=== PATIENT | female | born 1990 | race Caucasian/White ===

== ENCOUNTER 2019-05-15 11:16 | Outpatient (CLI) | payer OTHER, SELFPAY ==
[2019-05-15 12:55] LABS: TSH (W/Ref FT4) 1.39 uIU/mL (0.36-3.74)
== END 2019-05-15 11:36 ==
PROVIDERS: PCP Nurse Practitioner Adult Health; Visit Provider Nurse Practitioner Adult Health
DX: Z86.39 Personal history of other endocrine, nutritional and metabolic disease (principal)
CPT/HCPCS: 36415; 84443

== ENCOUNTER 2019-06-19 10:14 | Outpatient (REF) | payer OTHER, SELFPAY ==
--- NOTE | 2019-06-19 09:15 | PAPFT_PTH ---
PATIENT: Mila Andino LOC: [facility] U#:[id number] AGE/SX: 29/F ROOM: RE06/19/[address]: Roselia Renae NP : 1990 BED: DIS: 06/19/2019 SPEC #: [id number] RECD: 06/19/19 12:57 STATUS: MARIO REMaria A #: [id number] CONCEPCION: 06/19/19 09:[address]: Roselia Renae NP [facility] Cytology RECD BY: Ignacia Muniz ENTERED: 06/19/19 12:57 SP TYPE: PAPFT OTHR DR: Jocelyn Martinez APRN Tissues: 1 - CX/ENDOCX FOR PAP SMEARS Procedures: PAP THIN PREP/UVM Screening HPV DNA PROBE Comments: [id number]
== END 2019-06-19 10:34 ==
LOC: LBN 10:14
PROVIDERS: PCP Nurse Practitioner Adult Health; Visit Provider Nurse Practitioner Women's Health
DX: Z12.4 Encounter for screening for malignant neoplasm of cervix (principal); Z11.51 Encounter for screening for human papillomavirus (HPV)
CPT/HCPCS: 88142; 87624

== ENCOUNTER 2019-11-26 13:00 | Outpatient (REF) | payer MEDICAID, SELFPAY ==
[2019-11-27 15:24] LABS: Chlamydia Result Negative (Negative); GC Result Negative (Negative)
== END 2019-11-26 13:20 ==
LOC: LBN 13:00
PROVIDERS: PCP Nurse Practitioner Adult Health; Visit Provider Nurse Practitioner Women's Health
DX: Z11.3 Encounter for screening for infections with a predominantly sexual mode of transmission (principal)
CPT/HCPCS: 87491; 87591

== ENCOUNTER 2020-07-30 02:10 | Outpatient (CLI) | payer MEDICAID, SELFPAY ==
--- NOTE | 2020-07-30 07:45 | DI.MRI_ITS ---
EXAM: MR LUMBAR SPINE WO CLINICAL HISTORY: 5m lumbar pain s/p PT--improved, but not resolved,M54.5,G89.29. TECHNIQUE: Multiplanar multisequence MRI of the Lumbar spine was performed. COMPARISON: There are no plain films of the lumbar spine available time this MRI interpretation. FINDINGS: Five lumbar vertebrae are presumed. Conus medullaris is at normal level. There is no evidence of conus mass nor subjacent clumping of in trathecal nerve roots to suggest arachnoiditis. The distal thecal sac appears unremarkable.There is no evidence of Tarlov intrasacral cysts nor other significant findings within the sacral canal Bones:There are no fractures nor ominous osseous lesions in the lumbar vertebral bodies and visualize d sacrum. With respect to the individual levels... T12-L1: Unremarkable L1-2: Normal disc height and signal. No disc herniation nor central canal stenosis.No foraminal steno sis L2-3: Normal disc height. No disc herniation nor central canal stenosis.No foraminal stenosis.No face t arthropathy. L3-4: Normal disc height. No disc herniation or central canal stenosis.No foraminal stenosis.No face t arthropathy. L4-5: Normal disc height and signal. No significant disc herniation. No central canal stenosis. No foraminal stenosis. No facet arthropathy. L5-S1: Normal disc height and signal. There is mild central subligamentous annular bulging. There i s no prominent disc herniation at this level. Central canal dimensions are within normal limits. Th ere is no significant foraminal stenosis on either side at this level. No significant facet arthropa thy. Soft tissues: paraspinal soft tissues appear unremarkable. IMPRESSION: 1. At L5-S1 level there is mild central subligamentous annular bulging. No prominent disc herniation . Central canal dimensions are within normal limits and there is no foraminal stenosis at this level nor facet arthropathy. 2. Other levels appear unremarkable. 3. Bone signal is normal. No osseous lesions. DATA REPOSITORY:
== END 2020-07-30 02:30 ==
PROVIDERS: PCP Nurse Practitioner Adult Health; Visit Provider Nurse Practitioner Adult Health
DX: M54.5 Low back pain (principal); G89.29 Other chronic pain
CPT/HCPCS: 72148

== ENCOUNTER 2020-10-22 02:57 | Outpatient (CLI) | payer MEDICAID, SELFPAY ==
[2020-10-22 16:32] LABS: TSH (W/Ref FT4) 1.58 uIU/mL (0.36-3.74); Vitamin B12 256 pg/mL (193-986)
[2020-10-22 16:33] LABS: Folate > 20.0 ng/mL (8.6-20.0)
[2020-10-22 21:45] LABS: Thyroglobulin Antibody 201 U/mL (<=60); Thyroperoxidase Antibody >1300 U/mL (<=60)
[2020-10-24 11:14] LABS: FREE T4 0.89 ng/dL (0.76-1.46)
[2020-10-24 16:56] LABS: T3, Total 136 ng/dL (97-169)
== END 2020-10-22 02:58 | disposition home or self-care (01) ==
LOC: LBO 02:57
PROVIDERS: PCP Nurse Practitioner Adult Health; Visit Provider Nurse Practitioner Adult Health
DX: F41.8 Other specified anxiety disorders (principal); E06.3 Autoimmune thyroiditis; Z86.39 Personal history of other endocrine, nutritional and metabolic disease
CPT/HCPCS: 36415; 86376; 82607; 82746; 84439; 84443; 84480

== ENCOUNTER 2021-04-26 06:44 | Emergency (ER) | payer MEDICAID, SELFPAY ==
--- NOTE | 2021-04-26 06:51 | W.ED.GENAD ---
Discharge Plan Disposition Patient Disposition: HOME Condition: Stable Discharge Details Clinical Impression: Pelvic pain, Dyspareunia Primary Care Provider: Jocelyn Martinez ED Provider: Karlos George Home Meds and New Rx's Prescriptions: Continued Mirena 20 mcg/24 hours (6 yrs) 52 mg intrauterine device 1 device intrauterine ONCE RF: 0 escitalopram oxalate 20 mg tablet 20 mg PO DAILY Qty: 90 RF: 3 multivitamin Tablet 1 tab PO DAILY RF: 0 Discharge Instructions Additional Instructions: We will ask our care management team to arrange a follow-up for you in [facility]. As we discussed pelvic rest, liberal fluids, nonsteroidal anti-inflammatory such as ibuprofen 600 mg every 8 hours for the next 1 to 2 days. This is best taken with food. Return to the emergency department for new concerns. Medical Decision Making <Lane Renae MD - Last Filed: 04/26/21 07:34> 31 yo female comes in with complaints of lower back and pelvic pain that started last night while having intercourse. She went to work today and started to feel lightheaded while standing and still had pelvic pain so came here. Denies chest pain, dyspnea, vaginal discharge or bleeding. Denies any fevers. She arrives stable and speaking in full sentences. She has lower left and right pelvic tenderness, no upper abdominal pain. I performed a speculum exam with nurse Arlen Camacho at bedside and patient did have pain with speculum insertion, no discharge or bleeding or significant abnormalities noted on exam, did not visualize the iud strings. Given her pain and location of pain will obtain u/s to evaluate for ovarian cyst and torsion and also to evaluate for proper placement of her IUD. Her pain seems more pelvic than abdominal so feel entities such as appendicitis or diverticulitis are unlikely Differential Diagnosis Differential Diagnosis: ovarian cyst, ovarian torsion, dyspareunia Lab Data Lab results reviewed: Yes I reviewed the patient's lab results. <Karlos George MD - Last Filed: 04/26/21 08:40> Received signout from Dr. Renae. Please see his note regarding details of the initial presentation, exam and plan of care. Patient's pain improved. Ultrasound unremarkable, please see the formal report. Discussed with her pelvic rest, NSAIDs. She understands that her GC and Chlamydia are pending. We will obtain follow-up in [facility] clinic for dyspareunia. She is stable & discharged home at this time HPI <Lane Renae MD - Last Filed: 04/26/21 07:34> General Mode of arrival: ambulatory. Date/Time Provider Initiated Documentation: 04/26/21 06:45. Limitations to Documentation: no limitations. Information obtained by: patient. History of Present Illness 31 year old F presents to the emergency department with the chief complaint of abdominal pain, described as moderate, Quality is described as stabbing, and is localized to the abdomen. Patient reports no radiation. and it has been constant. No relieving factors improve symptom(s), No exacerbating factors reported . Patient did receive the following treatments prior to arrival, none Related Data Home Medications Medication Instructions Recorded Confirmed multivitamin 1 tab PO DAILY 05/08/19 04/26/21 escitalopram oxalate 20 mg tablet 20 mg PO DAILY #90 tab 03/03/20 04/26/21 levonorgestrel 20 mcg/24 hours (7 1 device INTRAUTERINE ONCE 03/03/20 04/26/21 yrs) 52 mg intrauterine device Previous Rx's Medication Instructions Recorded escitalopram oxalate 20 mg tablet 20 mg PO DAILY #90 tab 03/03/20 Allergies Allergy/AdvReac Type Severity Reaction Status Date / Time ioversol [From Optiray 160] Allergy Verified 04/26/21 07:05 latex Allergy Verified 04/26/21 07:05 CT contrast Allergy Hives Uncoded 04/26/21 07:05 Review of Systems <Lane Renae MD - Last Filed: 04/26/21 07:34> All systems reviewed & are unremarkable except as noted in HPI and below Constitutional Constitutional: Denies chills, Denies fever(s) and Denies weakness Cardiovascular Cardiovascular: Denies chest pain and Denies dyspnea Respiratory Respiratory: Denies cough and Denies dyspnea Gastrointestinal Gastrointestinal: Denies vomiting Musculoskeletal Musculoskeletal: Denies joint swelling Neurologic Neurologic: Denies weakness PFS <Lane Renae MD - Last Filed: 04/26/21 07:34> All Active Problems (Updated 04/26/21 @ 08:39 by Karlos George MD) Pelvic pain (Acute) Dyspareunia (Acute) Vegetarian diet (Chronic) B12 low-normal, recommend supp 10/2020 Thyroid antibody positive (Acute) Family history of thyroid disease (Chronic) Sister Graves, personal history, Dad hypothyroid Atrophoderma (Chronic) LLE IUD surveillance (Acute) Anxious depression (Acute) History of Jd thyroiditis (Acute) Medical History (Updated 04/26/21 @ 08:39 by Karlos George MD) History of bipolar disorder pediatric 13yo Interstitial cystitis ~2008, resolved spontaneously Lumbar spine pain SI joint dysfunction; MRI stable 2020 Pilar cyst 12/03/19 [facility] Surgical History H/O laparoscopy x2 (~2008, with hysteroscopy & cystocopy) Family History Mother Anxiety Ovarian cancer s/p surgery & thriving Depression Father Asthma Diabetes Hypertension Hyperlipidemia Paternal Grandmother Breast cancer Paternal Grandfather Lung cancer Colon cancer Maternal Grandfather Stroke TIA Social History Smoking/Tobacco Use Status: Never Smoking risk assessment performed?: Yes Alcohol Intake: current Alcohol Intake frequency: a few times a week Alcohol type: wine Drug use: Occasionally Substance use type: marijuana Adopted: No Caregiver/Support person: No Foster care: No Household members: significant other Housing: apartment Number of Children: 0 Communication Needs: Corrective Lenses Education Level: college Details: Some college Do you need help understanding health information?: Rarely current occupation: [employer] - 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 [facility] Sexually active: Yes Do you think of yourself as: straight/heterosexual Current gender identity: female What is your relationship status?: living with partner Panel score (0-1 are the most socially isolated patients): 1 What type of physical activity do you participate in: walking Frequency: 5-6 times per week Special florencia needs: No Seatbelt use: always Helmet use: Yes Drive intox or ride w/intox 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 Working smoke detector in home: Yes Fire extinguisher in home: Yes Carbon monox detector in home: Yes Do you feel safe at home: Yes Do you feel safe in your relationship?: Yes Female Reproductive History Menstrual Age of Menarche: 9 History History 0 Para Hx # Term Pregnancies Multiple births Hx # Pregnancies Ectopic pregnancies AB induced Hx Number of Living Children AB spontaneous Exam <Lane Renae MD - Last Filed: 04/26/21 07:34> Const General: no acute distress Orientation: alert HENMT Head: normal to inspection Ears: external ears normal General nose exam: external nose normal Mouth: moist mucous membranes Eyes General: appearance normal, both eyes and all related structures Neck Neck: normal visual inspection Resp Effort & Inspection: normal respiratory effort and able to speak in complete sentences Cardio Rate: regular rate GI Palpation: soft and tender Skin General skin exam: no rashes or lesions noted Neuro General: patient alert and patient oriented x3 Extrem General: normal to inspection Psych Mental Status: mental status grossly normal Sign Out <Lane Renae MD - Last Filed: 04/26/21 07:34> Sign Out Data: Sign Out Comment: pelvic pain starting during intercourse last night, pending labs, u/s and reeval Last updated by Lane Renae MD at 04/26/21 07:35
[2021-04-26 07:00] VITALS: BP 119/75; PULSE 69; RESP 16; TEMP 36.3; O2SAT 100
--- NOTE | 2021-04-26 07:15 | DI.US_ITS ---
Exam(s) US PELVIS TRANSVAGINAL EXAM: US PELVIS TRANSVAGINAL CLINICAL HISTORY: pelvic pain, ?ovarian torsion and ovarian cysts TECHNIQUE: Transabdominal and transvaginal imaging was performed using standard protocol. COMPARISON: No exams were available for comparison FINDINGS: KIDNEYS: Kidneys are symmetric in size. No evidence of renal calculi. No evidence of hydronephrosis. No renal mass or cyst identified. Transabdominal images are limited by inadequate bladder distention. UTERUS: Anteverted. 6.5 x 2.1 x 4.9 cm. Endometrium: IUD appears appropriately positioned. Endometrium less than 2 millimeters. Myometrium: Unremarkable. Cervix: Unremarkable. OVARIES: Right: Cyst or mass: 3.5 centimeter cyst with layering debris. Left: Cyst or mass: None. DOPPLER: Color: Symmetric and uniform flow to both ovaries. No hyperemia. Duplex: Normal ovarian arterial waveforms visualized. CUL-DE-SAC: Free fluid: None. IMPRESSION: 1. Normal-appearing uterus with IUD in position.. 2. The 3.5 centimeter cyst with layering hemorrhagic debris. No evidence of torsion. DATA REPOSITORY:
[2021-04-26 07:51] LABS: Abs Immature Grans 0.01 10^3/uL (0.0-0.06); Absolute Basophil Count 0.02 10^3/uL (0.0-0.2); Absolute Eosinophil Count 0.11 10^3/uL (0.0-0.7); Absolute Lymphocyte Count 0.41 10^3/uL (1.2-3.4); Absolute Monocyte Count 0.41 10^3/uL (0.1-0.8); Absolute Neutrophil Count 5.07 10^3/uL (1.2-6.7); Basophils % 0.3; Eosinophils % 1.8; HCT 45.2 % (36.0-46.0); HGB 14.7 g/dL (11.2-15.7); Immature Grans % 0.2; Lymphocytes % 6.8; MCH 28.7 pg (27.0-33.0); MCHC 32.5 % (32.0-36.0); MCV 88.1 fL (80-95); MPV 11.1 fL (8.0-11.0); Monocytes % 6.8; Neutrophils % 84.1; Nucleated RBC 0 %; Platelet Count 155 10^3/uL (130-400); RBC 5.13 10^6/uL (3.93-5.22); RDW 11.9 % (11.7-14.6); RDW-SD 38.4 fL; WBC 6.03 10^3/uL (4.4-10.8)
[2021-04-26] MEDS: Ketorolac 15 MG/ML VIAL IVP (07:51)
[2021-04-26] MEDS: Normal Saline Flush 10 ML SYR IVP (07:52)
[2021-04-26 07:53] LABS: Bilirubin Negative (Negative); Blood Trace-intact (Negative); Clarity Clear (Clear); Glucose Negative (Negative); Ketones Negative (Negative); Leukocyte Esterase Negative (Negative); Nitrite Negative (Negative); Specific Gravity >= 1.030 (1.005-1.025); Urobilinogen 0.2 EU/dL (Up TO 0.2); pH 5.5 (5-8)
[2021-04-26 08:16] LABS: ALT 21 U/L (14-59); AST 13 U/L (15-37); Albumin 4.1 g/dL (3.4-5.0); Alkaline Phosphatase 71 U/L (46-116); Anion Gap 7.9 mmol/L (3-11); BUN 11 mg/dL (7-18); Bilirubin, Total 0.9 mg/dL (0.2-1.0); CO2 26.1 mmol/L (21.0-32.0); CREATININE 0.6 mg/dL (0.55-1.02); Calcium 8.8 mg/dL (8.5-10.1); Chloride 105 mmol/L (98-107); Glucose 90 mg/dL (74-106); Lipase 106 U/L (73-393); Potassium 3.8 mmol/L (3.5-5.1); Sodium 139 mmol/L (136-145); Total Protein 7.2 g/dL (6.4-8.2)
[2021-04-26 08:38] LABS: Bacteria Many HPF (Negative); Crystals Negative HPF (Negative); Epithelial Cells Moderate HPF (Negative); RBC 0-2 HPF (0-2); WBC 0-2 HPF (0-5)
[2021-04-26 08:39] LABS: C & S Indicated? No/Sq. Contamination; Mucus Moderate (Negative)
--- NOTE | 2021-04-26 08:43 | NUR.NOTE ---
Referral faxed to [facility] for dyspareuia, in 2 weeks. Diane Gomez Nursing Note:
[2021-04-26 08:56] VITALS: BP 119/75; PULSE 69; RESP 16; TEMP 36.3; O2SAT 100
--- NOTE | 2021-04-26 09:37 | DI.VRAD_ITS ---
PROCEDURE INFORMATION: Exam: US Pelvis Complete, Transabdominal and US Pelvis, Transvaginal Exam date and time: 04/26/2021 8:39 AM Age: 31 years old Clinical indication: Abdominal pain; Lower abdomen TECHNIQUE: Imaging protocol: Real-time transabdominal and transvaginal pelvic ultrasound (complete) with image documentation. Transvaginal imaging was used for better evaluation of the endometrium, adnexa, and/or cervix. COMPARISON: MR LUMBAR SPINE WO 07/30/2020 1:50 PM FINDINGS: Uterus: Anteflexed. Measures 6.5 x 2.1 x 4.9 cm. Normal sonographic appearance of the myometrium. Linear, echogenic, shadowing intrauterine device. Where measured, the endometrium is normal in thickness, less than 2 mm. No dedicated images of the cervix. Right ovary/adnexa: Normal size. Predominantly anechoic 3.5 cm cyst with some layering hemorrhagic debris/clot. Right ovary has normal flow by color and spectral Doppler. Left ovary/adnexa: Normal size and sonographic appearance. No mass. Normal flow by color and spectral Doppler. Intraperitoneal space: No free fluid noted. Urinary bladder: Normal. Other findings: Normal sonographic appearance of the kidneys. IMPRESSION: 1. Normal sonographic appearance of the uterus and left ovary. Intrauterine device appears in appropriate position. 2. Typical hemorrhagic cyst of the right ovary measuring less than 5 cm. No need for additional imaging or follow-up. Dictated and Authenticated by: Lorenza Henderson MD. Ordering:YESENIA Sherman MD
[2021-04-27 15:36] LABS: Chlamydia Result Negative (Negative); GC Result Negative (Negative)
== END 2021-04-26 09:00 | disposition home or self-care (01) ==
PROVIDERS: Emergency Medicine; Emergency Provider Emergency Medicine; PCP Nurse Practitioner Adult Health
DX: R10.12 Left upper quadrant pain (principal); N94.10 Unspecified dyspareunia; M54.50 Low back pain, unspecified
CPT/HCPCS: 36415; 80053; 81025; 83690; 87491; 87591; 96374; 99284; 76830; 76856; 81003; 81015; 85025; 99283; J1885

== ENCOUNTER 2021-10-13 02:36 | Outpatient (CLI) | payer MEDICAID, SELFPAY ==
[2021-10-13 15:21] LABS: FREE T4 0.78 ng/dL (0.76-1.46); TSH 2.07 uIU/mL (0.36-3.74)
[2021-10-13 23:14] LABS: T3, Total 141 ng/dL (97-169)
[2021-10-14 09:40] LABS: Thyroglobulin Antibody 222 U/mL (<=60); Thyroperoxidase Antibody >1300 U/mL (<=60)
== END 2021-10-13 02:37 | disposition home or self-care (01) ==
LOC: LBO 02:36
PROVIDERS: PCP Nurse Practitioner Adult Health; Visit Provider Nurse Practitioner Adult Health
DX: R76.8 Other specified abnormal immunological findings in serum (principal); Z86.39 Personal history of other endocrine, nutritional and metabolic disease; Z83.49 Family history of other endocrine, nutritional and metabolic diseases
CPT/HCPCS: 36415; 86376; 84439; 84443; 84480

== ENCOUNTER 2022-05-19 04:37 | Outpatient (CLI) | payer MEDICAID, SELFPAY ==
[2022-05-19 16:58] LABS: FREE T4 0.76 ng/dL (0.76-1.46); TSH (W/Ref FT4) 1.52 uIU/mL (0.36-3.74)
[2022-05-20 18:04] LABS: T3, Total 140 ng/dL (97-169)
[2022-05-20 18:56] LABS: Thyroglobulin Antibody 229 U/mL (<=60); Thyroperoxidase Antibody >1300 U/mL (<=60)
== END 2022-05-19 04:38 | disposition home or self-care (01) ==
LOC: LBO 04:38
PROVIDERS: PCP Nurse Practitioner Adult Health; Visit Provider Nurse Practitioner Adult Health
DX: R76.8 Other specified abnormal immunological findings in serum (principal); Z83.49 Family history of other endocrine, nutritional and metabolic diseases; Z86.39 Personal history of other endocrine, nutritional and metabolic disease
CPT/HCPCS: 36415; 86376; 84439; 84443; 84480

== ENCOUNTER 2022-07-20 03:07 | Outpatient (CLI) | payer MEDICAID, SELFPAY ==
[2022-07-20 14:22] LABS: FREE T4 0.88 ng/dL (0.76-1.46); TSH 2.05 uIU/mL (0.36-3.74)
== END 2022-07-20 03:08 | disposition home or self-care (01) ==
PROVIDERS: PCP Nurse Practitioner Adult Health; Visit Provider Internal Medicine
DX: E06.3 Autoimmune thyroiditis (principal); E03.8 Other specified hypothyroidism
CPT/HCPCS: 36415; 84439; 84443

== ENCOUNTER 2022-10-04 04:25 | Outpatient (CLI) | payer MEDICAID, SELFPAY ==
[2022-10-04 09:08] LABS: TSH 2.43 uIU/mL (0.36-3.74)
== END 2022-10-04 04:26 | disposition home or self-care (01) ==
PROVIDERS: PCP Nurse Practitioner Adult Health; Visit Provider Internal Medicine
DX: E06.3 Autoimmune thyroiditis (principal); E03.8 Other specified hypothyroidism
CPT/HCPCS: 36415; 84439; 84443

== ENCOUNTER 2023-04-19 03:01 | Outpatient (CLI) | payer SELFPAY ==
[2023-04-19 15:40] LABS: FREE T4 0.96 ng/dL (0.76-1.46); TSH 1.38 uIU/mL (0.36-3.74)
== END 2023-04-19 03:02 | disposition home or self-care (01) ==
PROVIDERS: PCP Nurse Practitioner Adult Health; Visit Provider Internal Medicine
DX: E06.3 Autoimmune thyroiditis (principal)
CPT/HCPCS: 36415; 84439; 84443

== ENCOUNTER 2023-11-04 15:14 | Outpatient (REF) | payer SELFPAY | END 2023-11-04 15:15 | disposition home or self-care (01) | LOC: LBN 15:14 | PROVIDERS: PCP Nurse Practitioner Adult Health; Visit Provider Obstetrics & Gynecology | DX: R30.0 Dysuria (principal) | CPT/HCPCS: 87086 ==

== ENCOUNTER 2024-03-23 01:01 | Outpatient (CLI) | payer SELFPAY ==
[2024-03-23 12:13] LABS: FREE T4 0.84 ng/dL (0.76-1.46); TSH 1.87 uIU/mL (0.36-3.74)
== END 2024-03-23 01:02 | disposition home or self-care (01) ==
PROVIDERS: PCP Nurse Practitioner Adult Health; Visit Provider Internal Medicine
DX: E06.3 Autoimmune thyroiditis (principal)
CPT/HCPCS: 36415; 84439; 84443

== ENCOUNTER 2024-11-28 03:57 | Outpatient (CLI) | payer SELFPAY ==
[2024-11-28 16:47] LABS: TSH 1.49 uIU/mL (0.36-3.74)
== END 2024-11-28 03:58 | disposition home or self-care (01) ==
PROVIDERS: PCP Nurse Practitioner Adult Health; Visit Provider Internal Medicine
DX: E06.3 Autoimmune thyroiditis (principal)
CPT/HCPCS: 36415; 84439; 84443

== ENCOUNTER 2024-12-17 06:15 | Emergency (ER) | payer SELFPAY ==
[2024-12-17 06:21] VITALS: BP 110/71; PULSE 80; RESP 18; TEMP 36.9; O2SAT 99
[2024-12-17 07:41] VITALS: BP 121/61; PULSE 85; RESP 18; O2SAT 100
--- NOTE | 2024-12-17 07:42 | ED.GENADUL_ITS ---
Discharge Plan Disposition Patient Disposition: Home Discharge Details Clinical Impression: Acute low back pain with right-sided sciatica Primary Care Provider: Jocelyn Martinez ED Provider: Mariano Benson Home Meds and New Rx's Prescriptions: New diazepam [Valium] 5 mg tablet 5 mg PO TID PRNQty: 5 0RF Continued mecobalamin (vitamin B12) 1,000 mcg tablet,chewable 1,000 mcg PO DAILY cholecalciferol (vitamin D3) 50 mcg (2,000 unit) capsule 50 mcg PO DAILY levothyroxine 25 mcg capsule 37.5 mcg PO DAILY escitalopram oxalate 20 mg tablet See Rx Instructions .ROUTE .COMPLEX Qty: 90 3RF Dose Instruction: TAKE ONE TABLET BY MOUTH EVERY DAY Rx Instructions: TAKE ONE TABLET BY MOUTH EVERY DAY Discharge Instructions Instructions: Sciatica Exercises Additional Instructions: You were seen emerged part for your low back pain. You likely have sciatica. Please return to the emergency department if you develop any numbness or tingling between your legs if you lose control of your bowels or bladder or if you have any other concerns. For your pain please take medications as follows: 1. Take acetaminophen (Tylenol), 650 mg tablets every 6 hours [2. Take ibuprofen (Advil), 400 mg every 6 hours.] You are also receiving some diazepam. Please do not drive or drink alcohol after taking this medication. HPI General Date/Time Provider Initiated Documentation: 12/17/24 07:42 . HPI Narrative: MDM This is an overall very well-appearing normothermic and not tachycardic 34-year-old female with acute on chronic low back pain lacking red flags for which patient will receive a short course of diazepam prior to discharge with empiric trial of expectant outpatient management. Patient has no history of malignancy to suggest increased risk for pathological fracture. Her feet are warm and well-perfused with intact PT and DP pulses so I am not concerned for critical limb ischemia so I do not feel that she requires a CT angiogram of her abdomen pelvis with runoffs. She has not lost control of her bowels nor bladder so I am not suspicious for cauda equina syndrome. No pain out of proportion to suggest necrotizing soft tissue infection. Patient has no neurological deficits to suggest benefit from emergent MRI. She also has normal 2+ patellar reflexes bilaterally. Soft nontender abdomen with no abdominal pain so my suspicion is low for appendicitis. No chest pain to suggest pneumothorax nor pneumonia. No recent spinal instrumentation so I am not suspicious for spinal epidural hematoma. Patient denies IV drug use and has not had fevers so my suspicion is low for spinal epidural abscess. Patient has no rash to back to suggest zoster. I counseled the patient on scheduled acetaminophen ibuprofen and also gave her a short course of diazepam after reviewing her PDMP record. We discussed that she should return to the ED if she develop any numbness to her legs or any weakness of her lower extremities or if she had any other concerns. She understood her return indications and was discharged with empiric trial of expectant outpatient management. 11:11 AM Patient felt markedly improved following acetaminophen and intramuscular ketorolac and diazepam. She requested discharge. We discussed that she should return if she developed any saddle anesthesia any weakness or loss control of her bowels or bladder. Otherwise I advised PCP follow-up. HPI This is a patient with a history of L5-S1 disc bulge and SI joint dysfunction presenting with severe back pain. The patient began experiencing back pain on the night of 12/16/2024, which has since escalated. The pain radiates down her right leg into her ankle, resembling sciatic pain. She reports no numbness or tingling sensations. The pain is most intense in her hip area, and she describes it as feeling like her leg is being torn from her hip. This morning, she experienced a popping sensation and spasm while dressing, which left her immobile. She reports no chest or stomach pain, bowel or bladder incontinence, numbness between her legs, recent surgeries, IV drug use, fevers, or vomiting. She also reports no recent falls or injuries. She has a history of L5-S1 disc bulge and SI joint dysfunction. She has not had any recent surgeries to her back. She is not on any blood thinners. She has been managing the pain with Tylenol, but this episode is more intense than previous ones. She underwent an MRI and physical therapy in 2018 or 2019, which revealed an L5-S1 disc bulge. The pain has always been localized to the same spot in her back and radiates down her leg, but she has never been unable to bear weight on her ankle before. She recalls an incident yesterday where she had to hold onto a friend while walking due to her leg giving out, although she was not in significant pain at the time. Exam General: Uncomfortable-appearing in no acute distress speaking in complete sentences. Head: Normocephalic, atraumatic. Eye: Extraocular eye movements intact. No conjunctival injection. No scleral icterus. Ear, nose, mouth, throat: Grossly normal inspection. Normal voice, handling secretions normally. Neck: Trachea midline. Cardiovascular: Well-perfused distal extremities. Respiratory: Nonlabored respiration. Clear lungs bilaterally. Back: Right-sided lumbar spinal tenderness and SI joint tenderness. No rash to back. No step-offs no deformities. No midline thoracic nor lumbar spinal tenderness. Bilateral lower extremities with 2+ patellar reflexes. Bilateral feet warm well-perfused intact PT and DP pulses. Patient slightly decreased strength on the right compared to left with 4-5 strength dorsi and plantarflexion compared to 5 out of 5 strength on right. Strength limited secondary by pain. Gastrointestinal: Nondistended abdomen. Musculoskeletal: No edema. Moving all 4 extremities spontaneously. Skin: Normal for age and race, grossly normal temperature and turgor. No acute rash. Neurologic: Alert and appropriate, no apparent acute deficits. Psychiatric: Mood and manner are appropriate. Grooming and personal hygiene are appropriate. Related Data Home Medications ?Medication ?Instructions ?Recorded ?Confirmed mecobalamin (vitamin B12) 1,000 1,000 mcg PO DAILY 12/17/24 mcg chewable tablet cholecalciferol (vitamin D3) 50 50 mcg PO DAILY 12/17/24 mcg (2,000 unit) capsule levothyroxine 25 mcg capsule 37.5 mcg PO DAILY 10/13/ 3 12/17/24 escitalopram oxalate 20 mg tablet See Rx Instructions .Route 10/02/24 12/17/24 .COMPLEX #90 tabs diazepam 5 mg tablet (Valium) 5 mg PO TID PRN #5 tabs 12/17/24 Previous Rx's ?Medication ?Instructions ?Recorded escitalopram oxalate 20 mg tablet See Rx Instructions .Route 10/02/24 .COMPLEX #90 tabs diazepam 5 mg tablet (Valium) 5 mg PO TID PRN #5 tabs 12/17/24 Allergies Allergy/AdvReac Type Severity Reaction Status Date / Time ioversol (From Vivonet 160) Allergy Hives Verified 12/17/24 06:27 latex Allergy Hives Verified 12/17/24 06:27 CT contrast Allergy Hives Uncoded 12/17/24 06:27 General Stated Complaint: Nk/Back Pain DIANDRA: 4 Course Vital Signs Vital signs: Vital Signs Temperature 36.9 C 12/17/24 06:21 Pulse 80 12/17/24 06:21 Respiratory Rate 18 12/17/24 06:21 Blood Pressure 110/71 12/17/24 06:21 Pulse Oximetry 99 12/17/24 06:21 Temperature 36.9 C 12/17/24 06:21 Temperature Source Oral 12/17/24 06:21 Pulse 85 12/17/24 07:41 Respiratory Rate 18 12/17/24 07:41 Blood Pressure 121/61 12/17/24 07:41 Blood Pressure Mean 81 12/17/24 07:41 Blood Pressure Position Sitting 12/17/24 06:21 Pulse Oximetry 100 12/17/24 07:41 Oxygen Delivery Method Room Air 12/17/24 07:41 Oxygen Flow Rate 0 12/17/24 07:41 Pain Level 8 12/17/24 06:21 PFSH All Active Problems (Updated 12/17/24 @ 10:03 by Mariano Benson MD) Acute low back pain with right-sided sciatica (Acute) Arthralgia of right shoulder region (Acute) Right shoulder pain (Acute) Family history of ovarian cancer (Acute) Pt was negative for BRCA 1/2 genes 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 (Acute ~06/2022) 07/08/22 [facility] note Attention deficit disorder (ADD) in adult (Acute) Bupropion trial Family history of thyroid disease (Chronic) Sister Graves, personal history, Dad hypothyroid Atrophoderma (Chronic) LLE Anxious depression (Chronic) L-T Lexapro Medical History History of bipolar disorder pediatric 13yo History of Jd thyroiditis (~2018) Interstitial cystitis ~2008, resolved spontaneously Lumbar spine pain SI joint dysfunction; MRI stable 2020 Pilar cyst 12/03/19 [facility] [place] Thyroid antibody positive (~08/2020) Vegetarian diet (~10/2020) B12 low-normal, recommend supp 10/2020 Surgical History H/O laparoscopy x2 (~2008, with hysteroscopy & cystocopy) Family History Mother Anxiety Ovarian cancer s/p surgery & thriving Depression Father Asthma Diabetes Hypertension Hyperlipidemia Paternal Grandmother Breast cancer Paternal Grandfather Lung cancer Colon cancer Maternal Grandfather Stroke TIA Social History Smoking/Tobacco Use Status: Never Smoking risk assessment performed?: Yes Alcohol Intake: current Alcohol Intake frequency: a few times a week Drug use: Occasionally Substance use type: marijuana Adopted: No Caregiver/Support person: No Foster care: No Household members: spouse Housing: apartment Number of Children: 0 Communication Needs: Corrective Lenses Education Level: high school Do you need help understanding health information?: Never current occupation: [employer] in [employer] Pets and animals: Yes Pets and animals: dog(s) Sexually active: Yes Do you think of yourself as: straight/heterosexual Current gender identity: female What is your relationship status?: How often do you talk on the phone with friends or family?: once per week How often do you get together with friends or relatives?: once per week Do you belong to any clubs or organized social groups?: no Panel score (0-1 are the most socially isolated patients): 1 What type of physical activity do you participate in: walking and other Details: hiking Duration: > 90 minutes/day Frequency: daily Special florencia needs: No Seatbelt use: always Helmet use: Yes Drive intox or ride w/intox grab driver: No Working smoke detector in home: Yes Fire extinguisher in home: Yes Carbon monox detector in home: Yes Do you feel safe at home: Yes Do you feel safe in your relationship?: Yes Female Reproductive History Menstrual Age of Menarche: 9 control method: progestin IUCD and other (partner with vasectomy) History History 0 Para Hx # Term Pregnancies Multiple births Hx # Pregnancies Ectopic pregnancies AB induced Hx Number of Living Children AB spontaneous
[2024-12-17] MEDS: diazePAM 5 MG TAB PO (08:06)
[2024-12-17] MEDS: Ketorolac 15 MG/ML VIAL IM (08:06)
[2024-12-17] MEDS: Acetaminophen 325 MG TAB 650 MG PO (08:06)
[2024-12-17 10:05] VITALS: BP 109/68; PULSE 56; RESP 12; O2SAT 99
== END 2024-12-17 10:10 | disposition home or self-care (01) ==
PROVIDERS: Emergency Provider Emergency Medicine; PCP Nurse Practitioner Adult Health
DX: M54.41 Lumbago with sciatica, right side (principal)
CPT/HCPCS: 99283; 99284; 96372; J1885